=== PATIENT | male | born 1990 | race Caucasian/White ===

== ENCOUNTER 2019-11-26 14:52 | Outpatient (CLI) | payer OTHER ==
[~2019-11-26] VITALS: Ht 185.4 cm; Wt 89.6 kg
--- NOTE | ~2019-11-26 | D ---
[facility] [place] [address] DISCHARGE SUMMARY Name: [facility]: 212[id number] Admission: 11/26/19 Attend Phys: Delta Nelson MD Discharge: Date of : 88 Report #: [id number] THIS REPORT FOR: cc: KILEY - No family physician/PCP KILEY - No family physician/PCP Delta Nelson MD ~ THIS REPORT FOR: //name// CC: KILEY physician/PCP Delta Nelson DISCHARGE DIAGNOSES: 1. Supraventricular tachycardia. 2. 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 PROCEDURES PERFORMED: SVT ablation. HISTORY OF PRESENT ILLNESS: The patient is a 29-year-old male with history of palpitations going on a year, who went to an outside hospital and was found to have frequent episodes of SVT as well as SVT with aberration. He underwent an EP study today. He was found to have an accessory pathway mediated tachycardia. His accessory pathway was located at 3-4 o'clock along the mitral annulus. Again, this was a retrograde conducting pathway only. The patient did have evidence of both SVT that was narrow complex as well as SVT with right bundle branch block, aberration. He underwent successful ablation of his accessory pathway that was rendered non-inducible. HOSPITAL COURSE: The patient was monitored in the CCU overnight and did well. On the day of discharge, he had some mild inspiratory chest pain, but no chest pressure or chest tightness. He denied any shortness of breath, PND, orthopnea, fevers or chills. PHYSICAL EXAMINATION: GENERAL: He was in no acute distress. HEART: Regular rate and rhythm. No murmurs, rubs, gallops. LUNGS: Clear to auscultation bilaterally. ABDOMEN: Soft, nontender, nondistended. EXTREMITIES: No clubbing, cyanosis, or edema and his groins showed no significant bruising or hematoma. On telemetry, he remained in sinus rhythm with no arrhythmias. As such, he was deemed stable for discharge home. We did discuss that during the EP study, he did have some frequent premature atrial contractions, which I do not know if he has clinically. He also had an episode of atrial fibrillation and atrial flutter during the procedure, which was likely a nonspecific finding related to high dose isoproterenol. I discussed that I doubt that he will have AFib in the [address] [address] DISCHARGE SUMMARY Name: [facility] L[facility] Room #: 212-P [facility]#: [id number] Admission: 11/26/19 Attend Phys: Delta Nelson MD Discharge: Date of : 88 Report #: [id number]. As such, he will be discharged home off beta coco therapy and he will take an aspirin 81 mg a day for 1 week. I will see him in 3 months. By: 0852 9 Delta Nelson MD /roselyn
--- NOTE | ~2019-11-26 | P ---
[facility] [place] [address] PROCEDURE REPORT Name: [facility] Room #: [facility] Jewell#: [id number] Admission: 11/26/19 Attend Phys: Delta Nelson MD Discharge: 11/27/19 Date of : 88 Report #: [id number] THIS REPORT FOR: cc: KILEY - Ivone family physician/PCP KILEY - Ivone family physician/PCP Delta Nelson MD ~ CC: KILEY physician/PCP Delta Nelson SVT ABLATION PREOPERATIVE DIAGNOSIS: Supraventricular tachycardia. POSTOPERATIVE DIAGNOSIS: Concealed left-sided accessory pathway. HISTORY: The patient is a 29-year-old male with a history of palpitations off and on for the past year, recently presented two nights outside Emergency Room with SVT as well as SVT with right bundle branch block aberration. He is here for EP study and ablation. PROCEDURES PERFORMED: 1. SVT ablation, CPT code 37300. 2. EP with left atrial pacing and recording, CPT code 86535. 3. Program stimulation pacing after IV drug infusion, CPT code 68776. 4. Intracardiac echo, CPT code 79316. 5. 3D mapping, CPT code 55320. 6. Transseptal puncture, CPT code 64887. 7. Arterial line placement, CPT code 03236. ANESTHESIA: The patient underwent MAC anesthesia with no anesthesia related complications. DESCRIPTION OF PROCEDURE: The patient underwent informed consent. We discussed the details of the procedure including the risks, which include, but not limited to bleeding, vascular damage, cardiac perforation, stroke, PR as well as damage to the [place] conduction system requiring permanent pacemaker. He understood these risks and is willing to proceed. The patient was brought to EP laboratory in fasting and sedated state, prepped and draped in a sterile fashion. I then injected lidocaine in bilateral groins and obtained access to both the right and left femoral veins. In the right femoral vein, I placed an 8-[place]an and 6-[place]an short sheath in the left femoral vein. I placed a 7 and 9-[place] short sheath. Next, under fluoroscopy, I placed 3 quadripolar catheters at the HRA, His and RV positions and a Decapolar catheter into the coronary sinus. Of note, the Decapolar catheter would easily come out of the CS, had to be repositioned multiple times during the procedure in order to properly monitor retrograde atrial activation. [facility] [address] [place] [address] PROCEDURE REPORT Name: [facility] Pedro Luis Room #: DEP MAGDA Jewell#: [id number] Admission: 11/26/19 Attend Phys: Delta Nelson MD Discharge: 11/27/19 Date of : 88 Report #: [id number] At baseline, the patient was in sinus rhythm with sinus cycle length of 790 milliseconds, KY interval 160 milliseconds, QRS duration 95 milliseconds, QT interval 335 milliseconds, AH interval 100 milliseconds, HV interval 40 milliseconds. While checking atrial and ventricular thresholds, it was evident that the patient had a left lateral pathway. Next, a basic EP study was performed. Atrial burst pacing was performed and AV block was noted at 330 milliseconds. Atrial ERP was noted at 270 milliseconds at [address] cycle length. Ventricular burst pacing demonstrated the patient had a left lateral accessory pathway. Retrograde block via the accessory pathway was at 330 milliseconds and the accessory pathway effective refractory period was 300 milliseconds at a [address] cycle length. Next, double atrial extrastimuli were delivered and no SVT was induced. Isoproterenol infusion was started at 2 mcg per minute. AV block was noted at 240 milliseconds. Atrial ERP was noted at 200 milliseconds at [address] cycle length. Double atrial extrastimuli were delivered and again no SVT was induced. On isoproterenol, the patient did have an episode of spontaneous atrial fibrillation lasting 10-20 milliseconds. This organized atrial flutter and there was evidence of right bundle branch block aberration which was noted at the outside hospital. This converted on its own. Of note, when I would perform aggressive atrial burst pacing, the patient would have 2-3 beats of an atrial tachycardia or frequent premature atrial contractions that appeared to be arising from the high right atrium. After I performed burst pacing, the patient was having spontaneous PACs and this resulted in SVT with a tachycardia cycle length of 230 milliseconds with the earliest atrial activity at CS 1-2 and this spontaneously terminated. This appeared to be consistent with an accessory pathway mediated tachycardia. Again, while on isoproterenol, the patient had another episode of atrial fibrillation, which again lasted about 10-20 milliseconds terminated on its own. I decreased isoproterenol and continued performing atrial burst pacing and again the patient had a spontaneous run of SVT that initiated with a premature atrial contraction. At this time this was with a right bundle branch block aberration, tachycardia cycle length was 250 milliseconds and this lasted about 7 seconds and again, it was earliest in CS 1-2. 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 Next, I obtained access to the right femoral artery x 1 placing a 5-[place] short sheath for continuous arterial BP monitoring. I also placed a 9-[place] short sheath in the left femoral vein and placed an ice catheter into the right atrium for intracardiac ultrasound and for transseptal procedure. TRANSSEPTAL PROCEDURE: Next, the patient was prepped for transseptal procedure. As noted, intracardiac ultrasound was placed in the right atrium. The patient had a nice thin interatrial septum. Using an SL1 sheath and a Granby needle, a transseptal was performed and this was straightforward. I then placed the SL1 into the left atrium and then placed a SmartTouch ThermoCool ablation catheter into the left atrium. Next, while pacing the ventricle at 350 milliseconds, I [facility] [address] [place] [address] PROCEDURE REPORT Name: [facility] Room #: DEP MAGDA Jewell#: [id number] Admission: 11/26/19 Attend Phys: Delta Nelson MD Discharge: 11/27/19 Date of : 88 Report #: [id number] performed a 3D activation map of the accessory pathway. This was located around 3 o'clock - 4 o'clock on the mitral annulus. There was a site where there appeared to be a nice VA fusion. I performed ablation at 50 kelly at this site and the pathway was gone in less than 1 second. We monitored for about 20 minutes and did not see any more conduction via the pathway. I did give IV adenosine while pacing the ventricle and there was no evidence of slow conduction via the pathway. However, after about 20-25 minutes with ventricular pacing, there appeared to be an occasional conducted beat via the pathway. These were very intermittent and I could get conduction via the pathway for 2-3 beats and then there would be competition with AV node. I therefore went back and mapped this area. Again, it was somewhat hard to map this as the conduction via this pathway was now very intermittent and slow. I therefore performed additional ablation along the area where I successfully ablated this, moving medial, lateral, inferior and posterior to the area of successful ablation. Therefore, we monitored for another 30 minutes. Post-ablation, AV gustavo ERP was noted at 320 milliseconds at [address] cycle length. Ventricular pacing was performed and VA conduction was now midline, decremental with VA block at around 410 milliseconds. AV block was 300 milliseconds and ventricular VA ERP was noted at 370 milliseconds at a [address] cycle length. Again, with ventricular pacing, I again gave 6 of adenosine and we no longer saw any conduction via a left-sided accessory pathway. Post-ablation, the patient was in sinus rhythm with sinus cycle length of 555 milliseconds, KY interval 130 milliseconds, QRS duration 90 milliseconds, QT interval 300 milliseconds, AH interval 75 milliseconds, HV interval 45 milliseconds. As such, all catheters and sheaths were pulled. Hemostasis was obtained and the patient's heparin was reversed using protamine. The patient awoke neurologically and hemodynamically intact. No complications and no significant bleeding. CONCLUSIONS: 1. Successful ablation of a right-sided concealed accessory pathway arising from 3-4 o'clock along the mitral annulus. 2. Normal SA gustavo function. 3. Normal AV gustavo function. 4. Normal His-Purkinje function. 5. No other inducible arrhythmias on or off isoproterenol. 6. A few runs of nonsustained atrial fibrillation and atrial flutter, likely nonspecific findings as this has not been seen clinically. By: 1100 [id number] Delta Nelson MD /nt
[2019-11-26 07:29] VITALS: BP 135/85
[2019-11-26 07:29] LABS: ABSOLUTE NEUTROPHILS 3.8 thou/uL (1.4-8.2); BASOPHILS 0.4 % (0.0-2.0); EOSINOPHILS 1.7 % (0.0-3.0); HEMATOCRIT 47.7 % (42.0-52.0); HEMOGLOBIN 16.2 gm/dL (14.0-18.0); LYMPHOCYTES 23.8 % (24.0-44.0); MCH 30.1 pg (26.0-34.0); MCV 88.5 fL (80.0-100.0); MONOCYTES 9.8 % (1.0-8.0); PLATELET COUNT 199 thou/uL (150-400); POLYS 64.3 % (36.0-66.0); RBC 5.39 mil/uL (4.50-6.00); RDW 13.2 % (10.5-14.5); WBC 5.9 thou/uL (4.0-11.0)
[2019-11-26 07:41] LABS: PROTIME 9.3 Seconds (9.3-11.4)
[2019-11-26 07:42] LABS: CALCIUM 9.8 mg/dL (8.5-10.1); CREATININE 1.1 mg/dL (0.7-1.3); POTASSIUM 3.8 mmol/L (3.5-5.1)
[2019-11-26 07:49] LABS: ALBUMIN 4.5 g/dL (3.4-5.0); TOTAL BILIRUBIN 0.5 mg/dL (<0.1-1.0); TOTAL PROTEIN 8.3 g/dL (6.4-8.2)
[2019-11-26 14:30] VITALS: BP 126/81
[~2019-11-26 14:52] MED LIST: PRILOSEC OTC20 MG PO; TOPROL XL50 MG PO
--- NOTE | 2019-11-26 17:31 | NUR ---
PT ARRIVED TO UNIT AT APPROX 1410 FROM PACU BY PACU STAFF. PT ALERT AND ORIENTED. VSS. C/O PAIN IN HEAD AND LEGS- MANAGED WITH PO PAIN MEDS PER DEC. PT ON BEDREST PROTOCOL POST SVT ABLATION PROCEDURE. O2 SATS WNL ON ROOM AIR NO C/O SOB/CHEST PAIN. ADMISSION COMPLETE. POST CATH VITALS INITIATIED. WILL CHART WHEN COMPLETE. PT CURRENTLY RESTING IN BED WITH FAMILY AT BEDSIDE. WILL CONT TO MONITOR AND FOLLOW POC.
[2019-11-26 20:00] VITALS: BP 123/86
[2019-11-26 20:33] VITALS: BP 123/86
[2019-11-27] VITALS: BP 120/89
[2019-11-27 03:56] VITALS: BP 115/61
[2019-11-27 04:00] VITALS: BP 115/61
[2019-11-27 07:30] VITALS: BP 119/76
--- NOTE | 2019-11-27 07:54 | NUR ---
ASSUMED PT CARE AT 1900, PT IS ALERT AND ORIENTEDX4, DENIES CHEST PAIN OR SOB, GROIN SITES CDI WITH NO HEMATOMA, COMPALINED OF HEADACHE AND PAIN IN LOWER EXTREMITES, PAIN MEDICINE GIVEN WITH PARTIAL RELIEF, SR ON THE MONITORVITAL SIGNS STABLE. COMPLAINED OF HEARTBURN, MEDICATION GIVEN WITH RELIEF, RESTED WELL
[2019-11-27] MEDS ORDERED: ASA81BEC PO (08:48)
[2019-11-27 10:26] VITALS: BP 119/76
--- NOTE | 2019-11-27 10:58 | NUR ---
ASSUMMED PT CARE AT APPROXIMATELY 0700. PT A&O X4. ASSESSMENT CHARTED. FALL PRECAUTIONS IN PLACE. PT DENIES HAVING CHEST PAIN. PT DENIES HAVING SOB. PT STATED HE HAD LEG PAIN. PT RECIEVED ANALGESICS. PT DISCHARGING HOME C SELF CARE. PT AND PT'S FAMILY RECIEVED DISCHARGE EDUCATION. PT AND PT'S FAMILY STATED UNDERSTANDING AND DENIED HAVING FURTHER CONCERNS. PT FAMILY DRVING PT HOME. R AND L GROIN C/D/I. NO HEMATOMA. PT AMBULATES STEADY/INDEPENDENT. VITAL SIGNS STABLE.
== END 2019-11-27 11:28 | disposition home or self-care (01) ==
LOC: CATH 14:52 → 2N 14:53 → ENTRNSPT 11-27 10:57 → EDTRNSPTSTS 11-27 10:59 → CATH 11-27 11:28
PROVIDERS: Internal Medicine Cardiovascular Disease
DX: I47.1 Supraventricular tachycardia (principal); I45.89 Other specified conduction disorders; K21.9 Gastro-esophageal reflux disease without esophagitis; Z98.890 Other specified postprocedural states; Z79.899 Other long term (current) drug therapy; Z87.891 Personal history of nicotine dependence; Z87.19 Personal history of other diseases of the digestive system
CPT/HCPCS: 10081; 62110; 62900; 65040; 70005